=== PATIENT | female | born 1990 | race Asian ===

== ENCOUNTER 2023-05-23 02:19 | Emergency (ER) | payer OTHER ==
[2023-05-23 02:23] VITALS: BP 118/71; PULSE 82; RESP 18; TEMP 98.1; BMI 26.4
== END 2023-05-23 03:32 | disposition left against medical advice (07) ==
LOC: JER 02:19
DX: O26.892 Other specified pregnancy related conditions, second trimester (principal); R55 Syncope and collapse; R00.1 Bradycardia, unspecified; I95.9 Hypotension, unspecified; O26.812 Pregnancy related exhaustion and fatigue, second trimester; R42 Dizziness and giddiness; R00.2 Palpitations; Z3A.19 19 weeks gestation of pregnancy
CPT/HCPCS: 99283-25